=== PATIENT | male | born 1985 | race Caucasian/White ===

== ENCOUNTER → 2022-06-22 | Outpatient (CLI) | payer BC ==
--- NOTE | 2022-06-23 13:36 | CA ---
Transthoracic Echo Report Name: Leonid Anaya Age: 37 Gender: M : 1985 Exam Date: 06/22/2022 08:27 Exam Location: [place] [facility] Ht (in): 71 Wt (lb): 180 Ordering Physician: Mark Nice MD Attending/Referring Phys: Mark Nice MD [employer] Iliana Wahl [facility] Procedure CPT: Indications: R07.9 CHEST PAIN Cardiac Hx: FAMILY HX Technical Quality: Excellent Contrast 1: Total Dose (mL): Contrast 2: Total Dose (mL): MEASUREMENTS (Male / Female) Normal Values 2D ECHO LV Diastolic Diameter PLAX 5.0 cm 4.2 - 5.9 / 3.9 - 5.3 cm LV Systolic Diameter PLAX 3.2 cm IVS Diastolic Thickness 1.0 cm 0.6 - 1.0 / 0.6 - 0.9 cm LVPW Diastolic Thickness 0.9 cm 0.6 - 1.0 / 0.6 - 0.9 cm LV Relative Wall Thickness 0.4 RV Internal Dim ED PLAX 3.1 cm LA Systolic Diameter LX 3.4 cm 3.0 - 4.0 / 2.7 - 3.8 cm LV Diastolic Volume MOD BP 96.3 cm??? 67 - 155 / 56 - 104 cm??? LV Systolic Volume MOD BP 39.6 cm??? 22 - 58 / 19 - 49 cm??? LV Ejection Fraction MOD BP 58.9 % >= 55 % LV Diastolic Volume MOD 4C 84.5 cm??? LV Systolic Volume MOD 4C 37.5 cm??? LV Ejection Fraction MOD 4C 55.6 % LV Diastolic Length 4C 7.4 cm LV Systolic Length 4C 5.9 cm LV Diastolic Volume MOD 2C 98.7 cm??? LV Systolic Volume MOD 2C 39.3 cm??? LV Ejection Fraction MOD 2C 60.2 % LV Diastolic Length 2C 6.6 cm LV Systolic Length 2C 5.5 cm LA Volume 44.0 cm??? 18 - 58 / 22 - 52 cm??? M-MODE Aortic Root Diameter MM 3.3 cm MV E Point Septal Separation 0.6 cm AV Cusp Separation MM 2.5 cm DOPPLER AV Peak Velocity 130.5 cm/s AV Peak Gradient 6.8 mmHg MV Area PHT 3.9 cm??? Mitral E Point Velocity 102.9 cm/s Mitral A Point Velocity 49.2 cm/s Mitral E to A Ratio 2.1 MV Deceleration Time 195.6 ms MV E' Velocity 9.5 cm/s Mitral E to MV E' Ratio 10.9 TR Peak Velocity 211.8 cm/s TR Peak Gradient 17.9 mmHg Right Ventricular Systolic Press 22.9 mmHg FINDINGS Left Ventricle Left ventricular ejection fraction is estimated at 55-60 %. Left ventricular cavity size normal. Left ventricular wall thickness normal. Normal left ventricular systolic function with no obvious regional wall motion abnormalities. Right Ventricle Normal right ventricular size and function. Right ventricular systolic pressure within normal limits. Right Atrium Normal right atrial size. Left Atrium Normal left atrial size. Mitral Valve Structurally normal mitral valve. Trace mitral regurgitation. Aortic Valve Trileaflet aortic valve. No aortic valve stenosis or regurgitation. Tricuspid Valve Structurally normal tricuspid valve. Trace tricuspid regurgitation. Pulmonic Valve Structurally normal pulmonic valve. No pulmonic regurgitation. Pericardium Normal pericardium. No pericardial effusion. Aorta Normal size aortic root and proximal ascending aorta. CONCLUSIONS Left ventricular ejection fraction 55-60% Trace mitral regurgitation Trace tricuspid regurgitation No pericardial effusion Previewed by: Dr. Joe Guerrero DO (Electronically Signed) Final Date: 23 June 2022 13:35
== END | disposition home or self-care (01) ==
LOC: RADECHMAIN 08:20
PROVIDERS: ATTEND Family Medicine
DX: I36.1 Nonrheumatic tricuspid (valve) insufficiency (principal); I34.0 Nonrheumatic mitral (valve) insufficiency
CPT/HCPCS: 93306